=== PATIENT | male | born 1965 | race Caucasian/White ===

== ENCOUNTER 2017-11-23 01:59 | Emergency (ER) | payer SELFPAY ==
[2017-11-23] MEDS ORDERED: Ondansetron HCl/PF 4 MG/2 ML Vial ONE (02:09)
[2017-11-23 02:32] LABS: #Basophils 0.1 thou/uL (0.0-0.2); #Eosinphils 0.2 thou/uL (0.0-0.7); #Lymphocytes 2.6 thou/uL (1.20-3.40); #Monocytes 0.5 thou/uL (0.11-0.59); %Basophils 0.7 % (0.0-1.0); %Eosinophils 1.7 % (0.0-10.0); %Lymphocytes 27.7 % (21.0-51.0); %Monocytes 5.8 % (0.0-10.0); %Neutrophils 64.2 % (42.0-75.0); Hemoglobin 14.6 g/dL (14.0-18.0); Mean Corpuscular HGB CONC 35.2 g/dL (32.0-36.0); Mean Corpuscular Hemoglobin 29.9 pg (27.0-31.0); Mean Corpuscular Volume 84.8 fl (80.0-94.0); Mean Platelet Volume 6.4 fL (7.4-10.4); Platelet Count 255 thou/uL (130-400); RBC Distribution Width 11.9 % (11.5-14.5); Red Blood Cell (RBC) Count 4.87 mill/uL (4.70-6.10); White Blood Cell (WBC) Count 9.4 thou/uL (4.8-10.8)
[2017-11-23 02:51] LABS: Acetaminophen Less than 6.0 mcg/mL (10.0-30.0); Alcohol 249 mg/dL (Less than 10); CK (CPK) 276 U/L (30-200); Lipase 12 U/L (8-78); Salicylate Less than 8.0 mg/dL (15.0-30.0)
[2017-11-23 02:56] LABS: CKMB 2.8 ng/mL (0-6.6); Troponin I Less than 0.010 ng/mL (< 0.028)
== END 2017-11-23 05:11 | disposition home or self-care (01) ==
LOC: ERS 01:59
DX: F10.129 Alcohol abuse with intoxication, unspecified (principal); E86.0 Dehydration
CPT/HCPCS: 36415; 80307; 82550; 82553; 83690; 84484; 85025; 93005; 96374; J2405